=== PATIENT | male | born 1990 ===

== ENCOUNTER 2016-09-03 10:06 | Emergency (ER) | payer SELFPAY | END 2016-09-03 11:44 | disposition home or self-care (01) | LOC: ER 10:06 | DX: S76.011A Strain of muscle, fascia and tendon of right hip, initial encounter (principal); S96.911A Strain of unspecified muscle and tendon at ankle and foot level, right foot, initial encounter; Z87.442 Personal history of urinary calculi; F17.200 Nicotine dependence, unspecified, uncomplicated; W19.XXXA Unspecified fall, initial encounter | CPT/HCPCS: 73502-RT; 73610-RT; 73630-RT; 99283 ==